=== PATIENT | female | born 1985 | race Caucasian/White ===

== ENCOUNTER → 2021-01-20 11:46 | Outpatient (CLI) | payer OTHER, SELFPAY ==
--- NOTE | ~2021-01-20 | US_ITS ---
US soft tissue head and neck 01/20/2021 12:12 Indication: Lymphadenopathy Procedure: High-resolution ultrasound of the left neck Comparison: No prior studies for comparison. Findings: There are multiple left cervical lymph nodes all of which retain their normal fatty hilum. Largest measures 1.7 cm. No abnormal fluid. Impression: 1: Left cervical lymphadenopathy measuring up to 1.7 cm, likely reactive. Consider correlation with c ontrast-enhanced CT. Reviewed, dictated and finalized at location B. Impression: 1: Left cervical lymphadenopathy measuring up to 1.7 cm, likely reactive. Consi mohsen correlation with contrast-enhanced CT.
== END ==
PROVIDERS: PCP Nurse Practitioner Family; Visit Provider Nurse Practitioner Family
DX: R59.0 Localized enlarged lymph nodes (principal)
CPT/HCPCS: 76536

== ENCOUNTER 2021-03-19 07:05 | Outpatient (CLI) | payer OTHER, SELFPAY | END 2021-03-19 07:06 | disposition home or self-care (01) | PROVIDERS: PCP Nurse Practitioner Family; Visit Provider Student in an Organized Health Care Education/Training Program | DX: Z87.59 Personal history of other complications of pregnancy, childbirth and the puerperium (principal) | CPT/HCPCS: 36415; 84144; 84702 ==

== ENCOUNTER 2021-03-21 07:13 | Outpatient (CLI) | payer OTHER, SELFPAY | END 2021-03-21 07:14 | disposition home or self-care (01) | LOC: ANHLAB 07:15 | PROVIDERS: PCP Nurse Practitioner Family; Visit Provider Student in an Organized Health Care Education/Training Program | DX: Z87.59 Personal history of other complications of pregnancy, childbirth and the puerperium (principal) | CPT/HCPCS: 36415; 84702 ==

== ENCOUNTER 2021-03-25 10:05 | Outpatient (CLI) | payer OTHER, SELFPAY ==
--- NOTE | ~2021-03-25 | US_ITS ---
EXAMINATION: US OB <= 14 weeks fetus EXAM DATE: 03/25/2021 10:48 INDICATION: Threatened miscarriage, threatened . 1st trimester. TECHNIQUE: Pelvic obstetrical transabdominal sonogram was performed by a technologist. There are mu ltiple grayscale and Doppler images available for interpretation. There are no earlier studies of th is gestation for comparison. FINDINGS: Uterus measures 8.6 x 4.9 x 5.1 cm. There is intrauterine gestation sac. pole with heart rate confirmed at 76 beats per minute. The 3.7 mm crown-rump length corresponds to estimated g estational age by ultrasound of 6 weeks 0 days, estimated date of confinement 11/18/2021. Yolk sac is identified. Small subchorionic hemorrhage measuring 1.0 x 0.4 x 1.8 cm. Ovaries are morphological ly normal. IMPRESSION: Early live intrauterine gestation with small subchorionic hemorrhage. Reviewed, dictated and finalized at location A. IMPRESSION: Early live intrauterine gestation with small subchorionic hemorrha ge.
== END 2021-03-25 10:06 | disposition home or self-care (01) ==
PROVIDERS: PCP Nurse Practitioner Family; Visit Provider Student in an Organized Health Care Education/Training Program
DX: O20.0 Threatened abortion (principal); O36.8911 Maternal care for other specified fetal problems, first trimester, fetus 1
CPT/HCPCS: 76801

== ENCOUNTER 2021-03-29 14:41 | Emergency (ER) | payer OTHER, SELFPAY ==
--- NOTE | ~2021-03-29 | US_ITS ---
US OB <=14 wk fetus w TV DATE: 03/29/2021 15:53 INDICATION: Vaginal bleeding TECHNIQUE: Real-time imaging and Doppler analysis COMPARISON: 03/21/2021 obstetrical ultrasound; small subchorionic hemorrhage measuring 1.0 x 0.4 x 1.8 cm was noted. FINDINGS: The uterus measures 8.3 cm height, 5.3 cm anteroposterior and 6.4 cm transverse dimension. Live barrios intrauterine gestation. heart rate 122 bpm. Gestational sac appears normally sha ped with normal surrounding hyperechogenicity consistent with decidual reaction. Approximately 12 x 15 x 26 mm hypoechoic area adjacent to the gestational sac suggests a subchorionic hematoma. Gestational sac measures 1.72 cm, consistent with 6 weeks 3 days estimated gestational age. Narberth-rump length of 0.65 cm is consistent with 6 weeks 4 days +/- 3 days, with ISMAEL of 11/18/2021. Left ovary 3.9 x 2.1 x 2.2 cm with 1.0 x 1.8 cm cyst. Right ovary is not detected. No pelvic free fluid collection is noted. IMPRESSION: Estimated gestational age of 6 weeks 4 days +/- 3 days; ISMAEL: 11/18/2021 12 x 15 x 26 mm Subchorionic hematoma Reviewed, dictated and finalized at Location A. Reviewed, dictated and finalized at location A. IMPRESSION: Estimated gestational age of 6 weeks 4 days +/- 3 days; ISMAEL: 022 12 x 15 x 26 mm Subchorionic hematoma
[2021-03-29 14:59] VITALS: BP 107/42; PULSE 89; RESP 18; TEMP 37.3; O2SAT 100
--- NOTE | 2021-03-29 15:27 | PC.NURSE ---
Patient to ultrasound at this time.
--- NOTE | 2021-03-29 15:32 | PC.NURSE ---
Patient reports that she was feeling well earlier today but woke from a nap at 1345 with bleeding noted in the bed. She also reports passing a golf ball sized piece of tissue or clots. Additionally she reports minor cramping in the lower abdomen
--- NOTE | 2021-03-29 15:36 | PC.NURSE ---
Patient reports that she was seen by her OB and had an ultrasound on Wednesday the . She states she was diagnosed with a subchorionic hematoma and was told there was an embryo which measured at 6 weeks and had a low heart rate of 76 .
[2021-03-29 15:38] LABS: Basophils Percent Auto 0.4 % (0.2-1.2); Eosinophils Absolute Auto 0.1 K/mm3 (0-0.3); Hematocrit 38.1 % (37.0-47.0); Hemoglobin 12.6 g/dL (12.0-15.0); Immature Granulocyte Absolute 0.03 K/mm3 (0.00-0.031); Immature Granulocyte Percent A 0.3 % (0-0.5); Lymphocytes Absolute Auto 2.65 K/mm3 (0.9-3.2); Mean Corpuscular HGB Conc 33.1 g/dl (32-36); Mean Corpuscular Hemoglobin 30.1 pg (26-34); Mean Corpuscular Volume 90.9 fl (80-100); Mean Platelet Volume 10.2 fl (7.4-10.4); Monocytes Absolute Auto 0.8 K/mm3 (0.1-0.6); Monocytes Percent Auto 8.6 % (2.6-8.5); Neutrophils Absolute Auto 5.9 K/mm3 (1.3-6.7); Neutrophils Percent Auto 61.7 % (45.5-73.1); Platelet Count Result 239 k/mm3 (150-375); Red Blood Count 4.19 M/mm3 (4.2-5.4); Red Cell Distribution Width 13.1 % (11.5-14.5); White Blood Count 9.5 K/mm3 (4.5-10.0)
[2021-03-29 15:49] LABS: INR 0.9; Prothrombin Time 12.2 Seconds (11.1-14.7)
[2021-03-29 15:50] LABS: Partial Thromboplastin Time 26.7 SECONDS (22.3-36.8)
[2021-03-29 16:04] LABS: Alanine Aminotransferase 25 U/L (4-35); Albumin Level 4.1 g/dL (3.5-5.1); Alkaline Phosphatase 56 U/L (38-126); Anion Gap 7 mmol/L (8-16); Aspartate Amino Transferase 26 U/L (14-36); Bilirubin,Total 0.3 mg/dL (0.2-1.3); Blood Urea Nitrogen 10 mg/dL (7-17); Calcium 8.9 mg/dL (8.4-10.2); Carbon Dioxide 24 mmol/L (22-30); Chloride 101 mmol/L (98-107); Estimated CRCL calculation 145 ml/min; Estimated Glomerular Filt Rate > 60; Glucose 98 mg/dL (65-110); Potassium 3.8 mmol/L (3.4-5.0); Sodium 132 mmol/L (137-145)
--- NOTE | 2021-03-29 16:49 | ED.GENADULT ---
HPI - General Adult General Chief complaint: Vaginal Bleeding <Atilio Jones PA-C - Last Filed: 03/29/21 16:54> Stated complaint: bleeding, 7 weeks <Atilio Jones PA-C - Last Filed: 03/29/21 16:54> Time Seen by Provider: 03/29/21 15:12 <Atilio Jones PA-C - Last Filed: 03/29/21 16:54> Source: patient <TITI Madrigal Last Filed: 03/29/21 16:54> Mode of arrival: ambulatory <TITI Madrigal Last Filed: 03/29/21 16:54> Limitations: no limitations <TITI Madrigal Last Filed: 03/29/21 16:54> History of Present Illness HPI narrative: Patient is G3, P1 presenting with chief complaint of vaginal bleeding and passing of a golfball sized blood clot prior to arrival. Patient states that she saw her [employer] MANAGER this past Wednesday due to bleeding. Patient had ultrasound performed and was diagnosed with a subchorionic hemorrhage. Patient states that before her bleeding was like a light menstrual. But she has not passed any large clots until today. Patient states after passing the large single clot she has not had any additional. She states that her cramping has subsided and she just feels mild twinges. Patient denies any fever, chills, nausea, vomiting, diarrhea or any other symptoms. <TITI Madrigal Last Filed: 03/29/21 16:54> Related Data Home medications: Home Medications Medication Instructions Recorded Confirmed fexofenadine 60 mg tablet 60 mg PO Q12H 01/22/20 01/28/21 docosahexaenoic acid 200 mg capsule mg PO 01/28/21 01/28/21 <TITI Madrigal Last Filed: 03/29/21 16:54> Allergies/adverse reactions: Allergies Allergy/AdvReac Type Severity Reaction Status Date / Time No Known Allergies Allergy Verified 03/29/21 15:12 <TITI Madrigal Last Filed: 03/29/21 16:54> Review of Systems Review of Systems: CONSTITUTIONAL: Denies fever, chills, or sweats. EYES: Denies visual changes, redness, or discharge. ENT: Denies rhinorrhea, congestion, sore throat, or otalgia. CARDIOVASCULAR: Denies chest pain, palpitations, or edema. RESPIRATORY: Denies cough or dyspnea. GASTROINTESTINAL: Denies abdominal pain, nausea, vomiting, or diarrhea. GENITOURINARY: Reports vaginal bleeding denies dysuria or hematuria. SKIN: Denies rash or itching. MUSCULOSKELETAL: Denies back pain, joint pain, or myalgia. NEUROLOGIC: Denies headache, numbness, dizziness, or weakness. PSYCHIATRIC: Denies anxiety or depression. <Atilio Jones PA-C - Last Filed: 03/29/21 16:54> PMFSH Past Medical History Medical History: Medical History Ectopic 2018 History of ectopic Vaginal delivery 04/19/2019 <Atilio Jones PA-C - Last Filed: 03/29/21 16:54> Surgical History Surgical History: Surgical History H/O right knee surgery Laparoscopic, 2004 [place] teeth removed <Atilio Jones PA-C - Last Filed: 03/29/21 16:54> Family History Family History: Family History Grandparent Diabetes mellitus Cerebrovascular accident Mother Hypertension Other Family history of cardiovascular disease <Atilio Jones PA-C - Last Filed: 03/29/21 16:54> Social History Social History: Social History Smoking status: Never smoker Second hand tobacco smoke exposure: No Alcohol intake: current Substance use: unknown <Atilio Jones PA-C - Last Filed: 03/29/21 16:54> Exam Narrative: GENERAL: Well-appearing, well-nourished, and in no acute distress. HEAD: Normocephalic, atraumatic. EYES: PERRLA and EOMI. CHEST: Clear to auscultation. No respiratory distress. No wheezes rales or rhonchi HEART: Regular rate and rhythm. No murmur heard. Normal peripheral pulses. ABDOMEN: Soft, nontender
[2021-03-29 17:55] VITALS: BP 102/59; PULSE 66; RESP 18; TEMP 36.7; O2SAT 100
== END 2021-03-29 17:55 | disposition home or self-care (01) ==
PROVIDERS: Physician Assistant; Emergency Provider General Practice; PCP Nurse Practitioner Family
DX: O46.8X1 Other antepartum hemorrhage, first trimester (principal); Z3A.01 Less than 8 weeks gestation of pregnancy
CPT/HCPCS: 36415; 76801; 76817; 80053; 84702; 85025; 85461; 85610; 85730; 99284

== ENCOUNTER → 2021-03-31 10:46 | Outpatient (CLI) | payer OTHER, SELFPAY ==
--- NOTE | ~2021-03-31 | US_ITS ---
EXAMINATION: US OB <=14 wk fetus w TV DATE: 03/31/2021 11:23 INDICATION: Viability and dating. Subchorionic hematoma follow-up. TECHNIQUE: Real-time transabdominal and transvaginal pelvic ultrasound was performed. COMPARISON: Ultrasound 03/29/2021, 03/25/2021 FINDINGS: TRANSABDOMINAL ULTRASOUND: The uterus measures 8.6 x 4.9 x 7.2 cm. TRANSVAGINAL ULTRASOUND: There is an intrauterine gestational sac. A yolk sac is identified. The fet al crown rump length measures 7 mm, which correlates with an estimated gestational age of 6 weeks and 4 day(s) (+/-) 4 day(s). heart motion is identified measuring 134 beats per minute (bpm) by M- mode Doppler. There is a subchorionic hematoma measuring 1.1 x 1.6 x 1.4 cm that previously measured 1.2 x 1.5 x 2.6 cm. The right ovary measures 2.7 x 1.4 x 2.9 cm. The left ovary measures 4.4 x 2.5 x 3.1 cm. There is no free fluid in the pelvis. IMPRESSION: 1. Single living intrauterine gestation with estimated date of delivery of 11/18/2021 based on the ul trasound from 03/25/2021. 2. Small subchorionic hematoma. Reviewed, dictated and finalized at location A. IMPRESSION: 1. Single living intrauterine gestation with estimated date of delivery of 10/31 based on the ultrasound from 03/25/2021. 2. Small subchorionic hematoma.
== END ==
PROVIDERS: Visit Provider Student in an Organized Health Care Education/Training Program
DX: Z36.9 Encounter for antenatal screening, unspecified (principal); O46.90 Antepartum hemorrhage, unspecified, unspecified trimester; Z3A.00 Weeks of gestation of pregnancy not specified
CPT/HCPCS: 76801; 76817

== ENCOUNTER 2021-05-03 10:28 | Emergency (ER) | payer OTHER, SELFPAY ==
[2021-05-03 10:44] VITALS: BP 107/73; PULSE 76; RESP 18; TEMP 36.9; O2SAT 100
--- NOTE | 2021-05-03 11:45 | ED.URI ---
HPI - URI/Sore Throat General Chief Complaint: Upper Respiratory Infection Stated Complaint: Sore Throat Source: patient Mode of arrival: ambulatory Limitations: no limitations History of Present Illness HPI Narrative: Patient is a 35-year-old female who presents reporting right lesions in throat and her right ear pressure. She reports having a sinus infection approximately 3 weeks ago with medication completed approximately 2 weeks ago. She denies fever, chills or body aches. She denies sore throat. Patient is approximately 12 weeks gestation. She reports taking Orly daily. She denies all other complaints at this time. She denies significant medical history. Related Data Home Medications Medication Instructions Recorded Confirmed fexofenadine 60 mg tablet 60 mg PO Q12H 01/22/20 01/28/21 Allergies Allergy/AdvReac Type Severity Reaction Status Date / Time No Known Allergies Allergy Verified 05/03/21 11:16 Review of Systems Review of Systems: CONSTITUTIONAL: Denies fever, chills, or sweats. EYES: Denies visual changes, redness, or discharge. ENT: Reports right ear pain, lesions in throat CARDIOVASCULAR: Denies chest pain, palpitations, or edema. RESPIRATORY: Denies cough or dyspnea. GASTROINTESTINAL: Denies abdominal pain, nausea, vomiting, or diarrhea. GENITOURINARY: Denies dysuria or hematuria. SKIN: Denies rash or itching. MUSCULOSKELETAL: Denies back pain, joint pain, or myalgia. NEUROLOGIC: Denies headache, numbness, dizziness, or weakness. PSYCHIATRIC: Denies anxiety or depression. [facility] Past Medical History Medical History Ectopic 2018 History of ectopic Vaginal delivery 04/19/2019 Surgical History Surgical History H/O right knee surgery Laparoscopic, 2004 [place] teeth removed Family History Family History Grandparent Diabetes mellitus Cerebrovascular accident Mother Hypertension Other Family history of cardiovascular disease Social History Social History Smoking status: Never smoker Second hand tobacco smoke exposure: No Alcohol intake: current Substance use: unknown Comments At the time of signature, I have reviewed and agree with nursing past medical, surgical, social, and family history unless otherwise noted. Please see nursing chart for further information. There is no relevant family history pertinent to the presenting complaint. Exam Narrative: GENERAL: Well-appearing, well-nourished, and in no acute distress. HEAD: Normocephalic, atraumatic. EYES: EOMI. No redness or drainage. Conjunctiva are normal. ENT: Mucous membranes pink and moist. Nares clear. No rhinorrhea. Right TM full, left TM normal. Small right tonsil calculi noted. Uvula midline. NECK: AROM. Supple. No lymphadenopathy. CHEST: No respiratory distress. HEART: Regular rate and rhythm. EXTREMITIES: Normal range of motion. SKIN: Warm, dry, no rash. NEURO: No focal deficits. Alert and oriented x3. Gait steady. PSYCH: Normal affect. No signs of depression or anxiety. Course Vital Signs Vital signs: Vital Signs Temperature 36.9 C 05/03/21 10:44 Pulse Rate 76 05/03/21 10:44 Respiratory Rate 18 05/03/21 10:44 Blood Pressure 107/73 05/03/21 10:44 Pulse Oximetry 100 05/03/21 10:44 Temperature 36.9 C 05/03/21 10:44 Pulse Rate 76 05/03/21 10:44 Respiratory Rate 18 05/03/21 10:44 Blood Pressure 107/73 05/03/21 10:44 Pulse Oximetry 100 05/03/21 10:44 Reviewed MDM - URI/Sore Throat MDM Narrative Medical decision making narrative: Patient appears to have tonsil calculi on right tonsil. Patient also has continued congestion. Patient to continue taking [id number] Orly, instructions are not tonsil calculi
== END 2021-05-03 11:55 | disposition home or self-care (01) ==
PROVIDERS: Emergency Provider Nurse Practitioner
DX: J35.8 Other chronic diseases of tonsils and adenoids (principal); O99.511 Diseases of the respiratory system complicating pregnancy, first trimester; Z3A.12 12 weeks gestation of pregnancy
CPT/HCPCS: 99211; G0463

== ENCOUNTER → 2021-05-07 11:18 | Outpatient (CLI) | payer OTHER, SELFPAY ==
--- NOTE | ~2021-05-07 | US_ITS ---
EXAMINATION: US OB <= 14 weeks fetus EXAM DATE: 05/07/2021 11:42 INDICATION: O41.8X10 - Other specified disorders of amniotic fluid an... 1st trimester. TECHNIQUE: Pelvic obstetrical transabdominal sonogram was performed by a technologist. There are mu ltiple grayscale and Doppler images available for interpretation. Comparison is made to prior examina tion from 03/31/2021. FINDINGS: Uterus measures 14.3 x 6.8 x 9.8 cm. There is intrauterine gestation sac. pole with heart rate confirmed at 165 beats per minute. The 6.1 cm crown-rump length corresponds to estimated gestational age by ultrasound of 12 weeks 4 days, estimated date of confinement 11/15/2021. Yolk sac is identified. There is no sonographic evidence of subchorionic hemorrhage, previously seen subcho rionic hematoma has resolved. Left ovary morphologically normal, right not visualized. IMPRESSION: 1. Live intrauterine gestation. 2. Resolution of previously seen subchorionic hematoma. Reviewed, dictated and finalized at location A.
== END ==
PROVIDERS: Visit Provider Student in an Organized Health Care Education/Training Program
DX: O41.8X10 Other specified disorders of amniotic fluid and membranes, first trimester, not applicable or unspecified (principal); Z3A.00 Weeks of gestation of pregnancy not specified
CPT/HCPCS: 76801

== ENCOUNTER 2021-05-18 09:09 | Outpatient (CLI) | payer OTHER, SELFPAY ==
--- NOTE | ~2021-05-18 | US_ITS ---
EXAMINATION: US OB <= 14 weeks fetus DATE: 05/18/2021 10:04 INDICATION: Threatened . TECHNIQUE: Real-time transabdominal obstetric ultrasound. FINDINGS: Comparison to multiple prior studies sequentially, with oldest reviewed study dated 021. There is a single living fetus in variable presentation. There is a small subchorionic hemorrhage trevon suring up to 1 cm. cardiac activity and movement is noted with a heart rate of 159 beats per minute. T he amniotic fluid volume is subjectively normal. Right ovary not visualized. Left ovary contains a 1. 7 cm corpus luteal cyst. The following biometric data were obtained: BPD: 25mm corresponds to gestational age 14 weeks 3 days. Head circumference: 98mm corresponds to gestational age 14 weeks 4 days. Abdominal circumference: 74mm corresponds to gestational age 13 weeks 6 days. Femur length: 12mm corresponds to gestational age 13 weeks 4 days. Estimated weight: 84grams +/- 13grams.] IMPRESSION: 1. Single living intrauterine in variable presentation with an estimated gestational age o f 13 weeks 5 days by inititial ultrasound. Appropriate interval growth. 2. Small subchorionic hemorrhage. Reviewed, dictated and finalized at location A. IMPRESSION: 1. Single living intrauterine in variable presentation with an estim ated gestational age of 13 weeks 5 days by inititial ultrasound. Appropriate i nterval growth. 2. Small subchorionic hemorrhage.
== END 2021-05-18 09:10 | disposition home or self-care (01) ==
PROVIDERS: PCP Nurse Practitioner Family; Visit Provider Obstetrics & Gynecology
DX: O20.0 Threatened abortion (principal); Z3A.00 Weeks of gestation of pregnancy not specified
CPT/HCPCS: 76801

== ENCOUNTER 2021-05-22 07:26 | Outpatient (CLI) | payer OTHER, SELFPAY ==
[2021-05-22 08:10] LABS: Add Urine Microscopic? YES; Amorphous Sediment Urine Few; Appearance Urine Cloudy (Clear); Bilirubin Urine Negative (Negative); Blood Urine 1+ (Negative); Color Urine Yellow (Yellow); Glucose Urine UA Negative (Negative); Ketones Urine Negative (Negative); Leukocyte Esterase Ur 3+ LEU/UL (NEGATIVE); Mucus Urine Rare /lpf; Nitrate Urine Negative (Negative); Protein Urine Negative (Negative); Specific Grav Ur 1.013 (1.001-1.035); Squamous Epithelial Cell Urine Many /hpf (Few); Urobilinogen Urine Negative mg/dL (<2.0)
[2021-05-22 08:46] LABS: HIV 1/2 Ab P24 Ag Result Negative (Negative)
[2021-05-22 09:38] LABS: Vitamin D 25 Hydroxy 45.3 ng/mL
[2021-05-22 09:58] LABS: Hepatitis B Surface Antigen Negative (Negative); Rubella IgG Antibody 9.9 IU/ML
[2021-05-22 10:12] LABS: Hepatitis C Virus Antibody Negative (Negative)
[2021-05-26 06:23] LABS: Rapid Plasma Reagin Non-Reactive (NonReactive)
== END 2021-05-22 07:27 | disposition home or self-care (01) ==
PROVIDERS: PCP Nurse Practitioner Family; Visit Provider Student in an Organized Health Care Education/Training Program
DX: Z34.90 Encounter for supervision of normal pregnancy, unspecified, unspecified trimester (principal); Z3A.00 Weeks of gestation of pregnancy not specified
CPT/HCPCS: 36415; 81001; 82306; 84443; 86592; 86703; 86762; 86787; 86803; 87086; 87340; G0432

== ENCOUNTER 2021-08-11 07:16 | Outpatient (CLI) | payer OTHER, SELFPAY ==
[2021-08-11 09:00] LABS: Basophils Percent Auto 0.4 % (0.2-1.2); Eosinophils Absolute Auto 0.1 K/mm3 (0-0.3); Hematocrit 37.1 % (37.0-47.0); Hemoglobin 12.4 g/dL (12.0-15.0); Immature Granulocyte Absolute 0.04 K/mm3 (0.00-0.031); Immature Granulocyte Percent A 0.5 % (0-0.5); Lymphocytes Absolute Auto 1.99 K/mm3 (0.9-3.2); Mean Corpuscular HGB Conc 33.4 g/dl (32-36); Mean Corpuscular Hemoglobin 30.7 pg (26-34); Mean Corpuscular Volume 91.8 fl (80-100); Mean Platelet Volume 10.3 fl (7.4-10.4); Monocytes Absolute Auto 0.5 K/mm3 (0.1-0.6); Monocytes Percent Auto 5.8 % (2.6-8.5); Neutrophils Absolute Auto 5.4 K/mm3 (1.3-6.7); Neutrophils Percent Auto 67.3 % (45.5-73.1); Platelet Count Result 214 k/mm3 (150-375); Red Blood Count 4.04 M/mm3 (4.2-5.4); Red Cell Distribution Width 13.2 % (11.5-14.5)
[2021-08-11 09:10] LABS: Glucose 1 Hour PP 50gm Dose 77 mg/dL
== END 2021-08-11 07:17 | disposition home or self-care (01) ==
LOC: ANHLAB 07:19
PROVIDERS: PCP Nurse Practitioner Family; Visit Provider Student in an Organized Health Care Education/Training Program
DX: Z34.90 Encounter for supervision of normal pregnancy, unspecified, unspecified trimester (principal); Z3A.00 Weeks of gestation of pregnancy not specified
CPT/HCPCS: 36415; 82947; 85025

== ENCOUNTER 2021-10-06 07:24 | Outpatient (CLI) | payer OTHER, SELFPAY ==
[2021-10-06 08:47] LABS: Basophils Percent Auto 0.4 % (0.2-1.2); Eosinophils Absolute Auto 0.1 K/mm3 (0-0.3); Eosinophils Percent Auto 0.9 % (0-4.4); Hematocrit 36.6 % (37.0-47.0); Hemoglobin 12.3 g/dL (12.0-15.0); Immature Granulocyte Absolute 0.04 K/mm3 (0.00-0.031); Immature Granulocyte Percent A 0.5 % (0-0.5); Lymphocytes Absolute Auto 2.09 K/mm3 (0.9-3.2); Lymphocytes Percent Auto 26.4 % (18.3-44.2); Mean Corpuscular HGB Conc 33.6 g/dl (32-36); Mean Corpuscular Hemoglobin 30.8 pg (26-34); Mean Corpuscular Volume 91.7 fl (80-100); Mean Platelet Volume 11.1 fl (7.4-10.4); Monocytes Absolute Auto 0.5 K/mm3 (0.1-0.6); Monocytes Percent Auto 5.8 % (2.6-8.5); Neutrophils Absolute Auto 5.2 K/mm3 (1.3-6.7); Platelet Count Result 188 k/mm3 (150-375); Red Blood Count 3.99 M/mm3 (4.2-5.4); Red Cell Distribution Width 13.1 % (11.5-14.5); White Blood Count 7.9 K/mm3 (4.5-10.0)
[2021-10-06 09:46] LABS: HIV 1/2 Ab P24 Ag Result Negative (Negative)
[2021-10-07 10:36] LABS: Rapid Plasma Reagin Non-Reactive (NonReactive)
== END 2021-10-06 07:25 | disposition home or self-care (01) ==
LOC: ANHLAB 07:24
PROVIDERS: PCP Nurse Practitioner Family; Visit Provider Student in an Organized Health Care Education/Training Program
DX: Z34.83 Encounter for supervision of other normal pregnancy, third trimester (principal); Z3A.00 Weeks of gestation of pregnancy not specified
CPT/HCPCS: 36415; 85025; 86592; 86703; G0432

== ENCOUNTER 2021-11-11 05:06 | Inpatient (IN) | payer OTHER, SELFPAY ==
[2021-11-11] VITALS (119 sets, daily range): BP systolic 63–151; BP diastolic 20–100; PULSE 31–233; RESP 16; TEMP 36.4–37.2; O2SAT 77–100; BMI 33.8
--- NOTE | 2021-11-11 05:06 | LDADM ---
This patient, Concepcion Riley, was admitted to Labor/Delivery/Recovery 106 on 11/11/21 at 05:06. Plans for labor, pain management and were discussed with patient. Patient/family oriented to hospital policies and general routines including ID bracelet, bed and alarms, visiting hours, pain management, procedures, bathroom and other care routines, personal items, smoking policy, room service/diet and guest tray routines, infant security routines, and visiting hours. Patient/Family are encouraged to report perceived risks to care and to ask questions if they do not understand what they are told or what they should do. See OBIX for further documentation.
--- NOTE | 2021-11-11 05:31 | WPDANESEPP ---
Anes - Eval Pre Procedure Procedure: labor epidural Date/Time: 11/11/21 05:31 Surgeon: luci Preop Diagnosis: pain during labor Pre Op Diagnosis: IOL Patient Data Age: 35 Gender: F Height: Weight: Allergies Allergy/AdvReac Type Severity Reaction Status Date / Time No Known Allergies Allergy Verified 11/06/21 09:45 Home Medications Medication Instructions Recorded Confirmed Type fexofenadine 60 mg tablet 60 mg PO Q12H 01/22/20 01/28/21 History prenat.vits,werner,[id number] 1 tablet PO DAILY 05/08/21 History Patient hx anesthesia problems: none Family hx anesthesia problems: none Results Review: All pre-operative results and documents have been reviewed as part of the pre-operative evaluation. [facility] Past Medical History Medical History Ectopic 2018 History of ectopic Vaginal delivery 04/19/2019 Surgical History Surgical History H/O right knee surgery Laparoscopic, 2004 [place] teeth removed Family History Family History Grandparent Diabetes mellitus Cerebrovascular accident Family history of cardiovascular disease Mother Hypertension Social History Social History Smoking status: Never smoker Second hand tobacco smoke exposure: No Alcohol intake: current Substance use: unknown Spiritual care concerns: No Exam Day of Procedure 11/11/21 05:31
[2021-11-11 06:18] LABS: Basophils Percent Auto 0.3 % (0.2-1.2); Eosinophils Absolute Auto 0.1 K/mm3 (0-0.3); Eosinophils Percent Auto 1.1 % (0-4.4); Hematocrit 39.2 % (37.0-47.0); Hemoglobin 12.8 g/dL (12.0-15.0); Immature Granulocyte Absolute 0.04 K/mm3 (0.00-0.031); Immature Granulocyte Percent A 0.5 % (0-0.5); Lymphocytes Absolute Auto 2.28 K/mm3 (0.9-3.2); Lymphocytes Percent Auto 25.7 % (18.3-44.2); Mean Corpuscular HGB Conc 32.7 g/dl (32-36); Mean Corpuscular Hemoglobin 31.1 pg (26-34); Mean Corpuscular Volume 95.4 fl (80-100); Mean Platelet Volume 11.9 fl (7.4-10.4); Monocytes Absolute Auto 0.5 K/mm3 (0.1-0.6); Monocytes Percent Auto 5.9 % (2.6-8.5); Neutrophils Absolute Auto 5.9 K/mm3 (1.3-6.7); Neutrophils Percent Auto 66.5 % (45.5-73.1); Platelet Count Result 175 k/mm3 (150-375); Red Blood Count 4.11 M/mm3 (4.2-5.4); Red Cell Distribution Width 13.3 % (11.5-14.5); White Blood Count 8.9 K/mm3 (4.5-10.0)
[2021-11-11] MEDS: LACTATED RINGERS 1,000 ML 125 ML IV CONT ×3 (06:55→13:25)
[2021-11-11] MEDS: OXYTOCIN 30 UNITS/NS 500 ML 30 UNITS/500 ML BAG IV CONT (06:58)
--- NOTE | 2021-11-11 08:32 | PM.IMHP ---
H&P: HPI History of Present Illness Date/Time: 11/11/21 08:32 Patient is a 35yo with LMP 02/10/21. She is currently 39w1d gestation with ISMAEL 11/17/21. She is dated by LMP c/w US on 03/25/21 at 6w gestation. Patient presented to L&D for a scheduled elective induction of labor. In general, patient reports feeling well today. Reports occasional contractions. Denies any vaginal bleeding or leakage of fluid. Reports good movement. Chief Complaint: Intrauterine gestation at 39w1d gestation Elective induction of labor Review of Systems Review of Systems: All systems reviewed & are unremarkable except as noted in HPI and below Constitutional: Constitutional: Reports as per HPI, Reports no additional constitutional complaints, Denies chills, Denies fever(s), Denies headache(s) and Denies night sweats Eyes: Eyes: Reports as per HPI and Reports no additional eye complaints ENT: Reports system reviewed and no additional complaints, except as documented, Reports as per HPI, Reports Normal hearing present and Denies headache(s) Cardiovascular: Cardiovascular: Reports as per HPI, Reports no additional cardiovascular complaints, Denies chest pain and Denies dyspnea Respiratory: Respiratory: Reports as per HPI, Reports no additional respiratory complaints, Denies cough and Denies dyspnea Gastrointestinal: Gastrointestinal: Reports as per HPI, Reports no additional gastrointestinal complaints, Denies abdominal pain, Denies change in bowel habits, Denies change in stool character, Denies nausea and Denies vomiting Genitourinary: Genitourinary: Reports no additional female genitourinary complaints, Reports as per HPI, Denies abnormal vaginal bleeding, Denies genital lesions, Denies hot flashes, Denies dyspareunia, Denies pelvic pain, Denies sexual dysfunction, Denies urinary incontinence, Denies vaginal discharge, Denies vaginal dryness and Denies vaginal odor Musculoskeletal: Musculoskeletal: Reports no additional musculoskeletal complaints and Reports as per HPI Integumentary/Breasts: Skin/Breast: Reports system reviewed and no additional complaints, except as docu, Reports as per HPI, Denies breast pain and Denies nipple discharge Neurologic: Reports system reviewed and no additional complaints, except as documented, Reports as per HPI, Reports Normal hearing present and Denies headache(s) Psychiatric: Psychiatric: Reports no additional psychiatric complaints, Reports as per HPI, Denies anxiety and Denies depression Endocrine: Endocrine: Reports no additional endocrine complaints and Reports as per HPI Hematologic/Lymphatic: Hematologic/Lymphatic: Reports no additional hematologic/lymphatic complaints and Reports as per HPI Allergic/Immunologic: Allergic/Immunologic: Reports no additional allergic/immunologic complaints and Reports as per HPI PMFSH Past Medical History Medical History Ectopic 2018 History of ectopic Vaginal delivery 04/19/2019 Surgical History Surgical History H/O right knee surgery Laparoscopic, 2004 [place] teeth removed Family History Family History Grandparent Diabetes mellitus Cerebrovascular accident Family history of cardiovascular disease Mother Hypertension Social History Social History Smoking status: Never smoker Second hand tobacco smoke exposure: No Alcohol intake: current Substance use: unknown Spiritual care concerns: No Meds Home Medications and Allergies Home Medications Medication Instructions Recorded Confirmed Type fexofenadine 60 mg tablet 60 mg PO Q12H 01/22/20 11/11/21 History prenat.vits,werner,[id number] 1 tablet PO DAILY 05/08/21 11/11/21 History Allergies Allergy/AdvReac Type Severity Reaction Status Date / Time No Known All
--- NOTE | 2021-11-11 08:37 | WPDHPUPDATE1 ---
History and Physical Update Update Date/Time: 11/11/21 08:37 History and Physical has been reviewed, including an updated exam of the patient. There are NO changes in the patient's condition. Risks, benefits, and alternatives have been discussed and questions answered. Patient agrees to proceed with procedure.
[2021-11-11] MEDS: PHENYLEPHRINE 1,000 MCG/10 ML SYRINGE 100 MCG IV PUSH ×4 (10:50→13:27)
[2021-11-11] MEDS: OXYTOCIN 30 UNITS/NS 500 ML 30 UNITS/500 ML BAG 125 UNITS IV CONT (14:57)
[2021-11-11] MEDS: IBUPROFEN 600 MG TABLET PO ×2 (16:40→23:31)
[2021-11-11] MEDS: WITCH HAZEL 40 PADS 1 PAD TOPICAL (16:40)
--- NOTE | 2021-11-11 16:44 | P.PCNOB_ITS ---
OB - Delivery Note Procedure Delivery date: 11/11/21 Procedure: The patient is a 35-year-old now who presented to labor and delivery on the morning of 11/11/2021 at 39 weeks 1 day gestation for scheduled elective induction of labor at term. Patient was admitted to labor and [facility]. Initial cervical exam was approximately 4 cm dilated. Induction of labor was begun with Pitocin. Artificial rupture membranes was performed. Clear amniotic fluid was noted. Patient became uncomfortable and requested an epidural for pain management which was placed without difficulty. Patient made progress to 5-6 cm dilated and then made extremely quick change to 8-9 cm dilated. Deep variable and spontaneous decelerations were noted on EFM. Cervix was able to be reduced and patient was encouraged to push. Patient was prepped draped for delivery. At 2:21 p.m., patient delivered infant head atraumatically without difficulty in KAILEY presentation. A nuchal cord x1 was noted and easily reduced. With subsequent push, the 's neck, shoulders, and rest of body were delivered without difficulty. Infant was initially weakly crying. Nose and mouth were suctioned with bulb suction. was placed on maternal abdomen where care was assumed by awaiting nursing staff. Delayed cord clamping was performed for approximately 60 seconds. On inspection, a true knot was noted in the umbilical cord. The cord was clamped and cut. A segment of cord was collected for cord gases. Cord blood was collected. The placenta was then delivered. Just as the placenta was almost in the vagina, the umbilical cord avulsed and placenta was manually evacuated from vaginal vault. On inspection, no lacerations were noted. Uterine fundus was firm with bimanual massage. Estimated blood loss for entire delivery was 110 cc. The infant was a live-born male , Apgars 8 and 9, weighing 8 lb 8 oz. Both mother and baby doing well at end of delivery. Events: Elective Induction of Labor Intrapartal Events: Decelerations Induction method: Per Pitocin Protocol Delivery augmentation: Rupture of Membranes Delivery monitor: External FHT and External Uterine Route of delivery: Laceration Description: None Specimen: No Quantitative Blood Loss (ml): 110 Anesthesia type: Epidural Disposition: Floor Complications: No immediate complications Baby Date of : 11/11/21 Time of : 14:21 Weeks of gestation at delivery: 39 (39.1) Infant gender: Male Weight (pounds): 8 Weight (ounces): 8 presentation: vertex position: Right Occiput Anterior Placenta delivery description: Manual Removal Cord Vessel Description: 3 Vessels, Nuchal Cord (x1), True Knot and Delayed Cord Clamping score one minute: 8 score five minutes: 9 AMG Delivery Billing Delivery Delivery: Delivery Charge
--- NOTE | 2021-11-11 17:51 | OBPPTRN ---
1657 Patient transferred to post room #281 via W/C. Oriented to unit, room, information board, rooming in, admission packet and security measures. Patient verbalizes understanding.
[2021-11-12 04:00] VITALS: BP 107/54; PULSE 86; RESP 16; TEMP 36.9; O2SAT 100
[2021-11-12 05:14] LABS: Hematocrit 36.1 % (37.0-47.0); Hemoglobin 11.8 g/dL (12.0-15.0)
[2021-11-12] MEDS: IBUPROFEN 600 MG TABLET PO ×2 (05:15→12:36)
[2021-11-12 08:30] VITALS: BP 111/58; PULSE 78; RESP 18; TEMP 36.4; O2SAT 100
--- NOTE | 2021-11-12 09:08 | PM.OBPNVD ---
OB - PN: Subj Subjective Date/time seen: 11/12/21 09:08 Patient doing well. Minimal lochia. Cramping with , tolerable. Ambulating without difficulty. OB - PN: Obj Data Labs CBC & Chem 7: 11/12/21 04:11 Labs: Laboratory Results - last 24 hr 11/12/21 04:11 Hgb 11.8 L Hct 36.1 L OB - PN A/P Assessment and Plan (1) Normal spontaneous vaginal delivery: Code(s): O80 - Encounter for full-term uncomplicated delivery Status: Acute Assessment and Plan: PPD#1 doing well continue routine care patient requesting dc home today if baby cleared emergency precautions reviewed may f/u in office in 4-6 weeks or sooner if necessary Time Spent With Patient Time: Total time spent is greater than 50% in coordination of care (as documented) at patient's floor/unit and/or counseling patient: Exam Const: General: cooperative, healthy appearing, comfortable and no acute distress GI: Inspection: non-distended GI Palp: Yes Soft to palpation and No Tenderness to palpation present (GI) Other: fundus firm below umbilicus Extrem: Right lower extremity: no edema Left lower extremity: no edema Other: no calf tenderness
--- NOTE | 2021-11-12 09:11 | PM.OBDSVD ---
DS: Admitting Diagnosis Discharge Date 11/12/21 Admitting Diagnosis Elective induction of labor OB - DS: Summary OB Procedures : None OB Procedures Intrapartum: Spontaneous Vag Delivery OB Procedures: : None Time Spent with Patient Time attestation: Total time spent providing and/or coordinating discharge services: DS: Data Data Completed and Pending Labs on day of discharge: Labs from last 24 hours 11/12/21 04:11 Hgb 11.8 L Hct 36.1 L Discharge Plan Discharge Attending physician on discharge: Edel Hoffmann Discharging Clinician: Edel Hoffmann Anticipated Discharge Date/Time: 11/12/21 09:12 Patient Disposition: Home, Self-Care Activity: as tolerated and pelvic rest Diet: regular Discharge Instructions: Call office ([phone]) to schedule a visit in 4-6 weeks. You may take Ibuprofen 600mg every 6 hours as needed for pain. Pain medication may make you constipated. It may be helpful to take an yvsn-uti-ixozdku stool softener, such as Colace and/or Senokot, along with the pain medication to help lessen constipation. Call office or go to ED for pain not controlled with medication, headache, chest pain, shortness of breath, fever, chills, persistent nausea or vomiting, severe abdominal pain, heavy vaginal bleeding >2 pads/hour, foul vaginal discharge or odor, or problems with your breasts. Patient Instructions: Antibiotic Form Stand Alone Forms: General Discharge Information Follow-up/Referrals: Edel Hoffmann MD [Physician] - Discharge Medications: Continued fexofenadine [Orly Allergy] 60 mg tablet 60 mg PO Q12H RF: 0 prenat.vits,werner,cgu-gozd-eatjy Tablet 1 tablet PO DAILY RF: 0 Date of admission: 11/11/21 05:06 Primary Care Provider: Debora,Sabrina Berkowitz Admitting Provider: Edel Hoffmann Attending physician on admission: Edel Hoffmann Condition: Stable
[2021-11-12 12:15] VITALS: BP 115/58; PULSE 72; RESP 18; TEMP 36.6; O2SAT 99
[2021-11-12] MEDS: MULTIVIT/MIN/PREN/FOL AC/IRON TABLET 1 TAB PO (12:35)
[2021-11-12] MEDS: MEASLES,MUMPS,RUBELLA VACCINE 0.5 ML VIAL SUB-Q (12:49)
--- NOTE | 2021-11-12 13:56 | WPDANLDPN2 ---
Anes-Prog Note L&D Date/Time: 11/12/21 13:56 Comfortable throughout: labor and delivery Neuraxial method: epidural Epidural/Spinal procedure site: clean & non-tender Neuro status: Neuro function grossly intact. Cardiovascular status: normal Respiratory status: normal Airway patency: baseline Mental status: baseline Post-Op hydration status: normal Vital Signs: Last Vital Signs Temp 36.4 C L 11/12/21 08:30 Pulse 78 11/12/21 08:30 Resp 18 11/12/21 08:30 BP 111/58 L 11/12/21 08:30 Pulse Ox 100 11/12/21 08:30 Pain score (VAS): 2 I/O: Intake & Output 11/11/21 11/12/21 11/12/21 23:59 07:59 15:59 Intake Total 1300 Output Total 110 Balance 1190 Post-procedural complaints: none Patient feedback: Patient satisfied with anesthetic care.
[2021-11-12 14:15] LABS: Rapid Plasma Reagin Non-Reactive (NonReactive)
[2021-11-14 11:30] VITALS: BP 113/62; PULSE 78; RESP 16; TEMP 37.3; O2SAT 100
== END 2021-11-12 16:05 | disposition home or self-care (01) | DRG 807 ==
LOC: ANHLDR 05:09 → ANHOB2 17:02
PROVIDERS: Admitting Provider Student in an Organized Health Care Education/Training Program; PCP Nurse Practitioner Family; Visit Provider Student in an Organized Health Care Education/Training Program
DX: O69.2XX0 Labor and delivery complicated by other cord entanglement, with compression, not applicable or unspecified (principal); Z37.0 Single live birth; Z3A.39 39 weeks gestation of pregnancy; O36.8330 Maternal care for abnormalities of the fetal heart rate or rhythm, third trimester, not applicable or unspecified
CPT/HCPCS: 36415; 85014; 85018; 85025; 86592; 86850; 86900; 86901; 90710; A9270; J2370; J2590; J2795; J7120

== ENCOUNTER → 2022-10-02 10:58 | Outpatient (CLI) | payer OTHER, SELFPAY ==
--- NOTE | ~2022-10-02 | US_ITS ---
EXAMINATION: US thyroid DATE: 10/02/2022 11:23 INDICATION: Hypothyroidism. TECHNIQUE: Multiple ultrasound images of the thyroid were obtained. COMPARISON: None. FINDINGS: The right thyroid lobe measures 6.5 x 1.8 x 1.8 cm. The left thyroid lobe measures 5.4 x 1.7 x 1.9 c m. The thyroid is diffusely heterogeneous and hypoechoic. Vascularity is increased. No discrete nodu le. IMPRESSION: 1. Heterogeneous, hypervascular thyroid, consistent with chronic lymphocytic (Sindhu) thyroiditis. Reviewed, dictated and finalized at location A. MACY CLERK IMPRESSION: 1. Heterogeneous, hypervascular thyroid, consistent with chronic lymphocytic (H ashimoto) thyroiditis.
== END ==
PROVIDERS: PCP Nurse Practitioner Family; Visit Provider Nurse Practitioner Family
DX: E03.9 Hypothyroidism, unspecified (principal)
CPT/HCPCS: 76536

== ENCOUNTER 2023-09-02 12:54 | Outpatient (CLI) | payer OTHER, SELFPAY ==
--- NOTE | 2023-09-21 13:29 | WPDSLEEPSTUD ---
Sleep Study Date of Study: 09/02/23 Ordering Provider: Tk Del Rosario APRN Interpreting Physician: Libby Montoya DO Sleep Study Type: Polysomnogram Height: 1.8 m Weight: 104.326 kg Body Mass Index: 32.1 Neck Circumference (inches): 15 [place]: 6 Reason for Sleep Study HST 07/01/23 through [facility] [place] - AHI 2.4. 5min spent below 88% O2 saturation. Bradycardia noted. Her HST from 11/04/2016 showed AHI of 3.1 but with elevated RDI of 37.8. Had oral appliance made by her dentist and it was working well until last year. Sleep History The patient is a 37-year-old female with anxiety, seasonal allergies and hypothyroidism that had a sleep study ordered by the pulmonary group for evaluation of sleep apnea. The patient occasionally awakens from sleep short of breath. She rarely awakens at night with heartburn, belching or cough. She occasionally snores but it is rarely loud enough others complain. She constantly has trouble sleeping when she has a cold. She rarely wakes up gasping for air throughout the night. She rarely has breathing problems at night observed by herself or others. She rarely sweats excessively at night. She denies having heart palpitations or irregular heartbeats during the night. She occasionally falls asleep during the day but never while driving. She denies sleep paralysis and cataplexy. She frequently has trouble at school or work due to sleepiness. She rarely experiences vivid dreamlike scenes upon awakening or falling asleep. She denies feeling afraid of going to sleep. She frequently has nightmares. She constantly has thoughts racing through her mind. She rarely feels sad or depressed. She constantly has anxiety. She constantly has muscular tension. She frequently notices parts of her body jerk. She frequently kicks during the night. She occasionally has crawling and aching feelings in her legs and occasionally has leg pain during the night. She frequently grinds her teeth during sleep and frequently awakens with morning jaw pain. She is frequently bothered by pain during the day but rarely awakened by pain during the night. She frequently wakes up feeling stiff in the morning. She frequently wakes up with sore or achy muscles. She frequently wakes up with pain in the neck, spine and other joints. She goes to bed at 9:00 p.m. on weekdays and between 9:30-10 p.m. on the weekends. It takes her 10-20 minutes to fall asleep. She wakes up 2-3 times throughout the night for unknown reasons but is able to fall back asleep within a few minutes. She wakes up at 6:00 a.m. on weekdays and between 6:30-7 a.m. on the weekends. She typically gets 7-8 hours of sleep per night. She will stay in bed for 5 minutes after waking up in the morning. She currently lives with her 2 young children. She denies consuming any caffeinated beverages within 2 hours of bedtime. She denies engaging in physical exercise before bedtime. She will watch TV and occasionally read before falling asleep. She will take naps during the afternoon or evening on the weekends but they are not refreshing. She consumes 2 caffeinated beverages per day. She consumes 2 alcoholic beverages per weekend. She denies tobacco and recreational drug PMFSH Past Medical History Medical History Acute anxiety Ectopic 2018 Encounter for IUD insertion 03/2022 History of ectopic Vaginal delivery 04/19/2019 11/11/21 Surgical History Surgical History H/O right knee surgery Laparoscopic, 2004 [place] teeth removed Family History Family History Grandparent Diabetes mellitus Cerebrovascular accident Family history of cardiovascular disease Mother Hypertension Social History Social History (Reviewed 09/21/23 @ 13:29 by Pooja
[2023-09-21 13:36] VITALS: BMI 32.1
== END 2023-09-03 05:52 | disposition home or self-care (01) ==
PROVIDERS: Visit Provider Nurse Practitioner Family
DX: G47.61 Periodic limb movement disorder (principal); R06.83 Snoring; R53.83 Other fatigue; Z86.69 Personal history of other diseases of the nervous system and sense organs
CPT/HCPCS: 95810

== ENCOUNTER 2024-06-13 11:03 | Outpatient (CLI) | payer OTHER, SELFPAY ==
--- NOTE | ~2024-06-13 | MM_ITS ---
EXAMINATION: MM screening jordyn BI w sandie HISTORY: Screening mammogram TECHNIQUE: Craniocaudal and mediolateral oblique 3-D tomosynthesis images were obtained and synthetic 2-D images were generated. CAD analysis was submitted and interpreted. COMPARISON: No prior mammogram is available for comparison at this institution. BREAST PARENCHYMAL COMPOSITION:Not Dense. There are scattered areas of fibroglandular density. FINDINGS: No suspicious mass, calcification, or architectural distortion are identified in either morro ast to suggest malignancy. There has been no suspicious interval change. IMPRESSION: No mammographic evidence of malignancy. Recommend routine screening mammography in one year. BI-RADS Category 1: Negative Reviewed, dictated and finalized at location . ING MILL OPERATOR
== END 2024-06-13 11:04 | disposition home or self-care (01) ==
PROVIDERS: PCP Registered Nurse; Visit Provider Internal Medicine Endocrinology, Diabetes & Metabolism
DX: Z12.31 Encounter for screening mammogram for malignant neoplasm of breast (principal)
CPT/HCPCS: 77063; 77067